=== PATIENT | male | born 1955 | race Caucasian/White ===

== ENCOUNTER 2018-06-12 13:43 | Inpatient (IN) | payer OTHER ==
[~2018-06-12] VITALS: Ht 170.2 cm; Wt 103.9 kg
[2018-06-12] MEDS ORDERED: LOSA25TA12 PO (13:56)
[2018-06-12] MEDS ORDERED: SIMV10TA6 PO (13:56)
[2018-06-12] MEDS ORDERED: OMEP20CA10 PO (13:56)
[2018-06-12 15:12] LABS: BASOPHILS % 0.6 % (0.0-2.0); EOSINOPHILS % 2.1 % (0.0-5.0); HEMATOCRIT. 46.8 % (42.0-52.0); LYMPHOCYTES % 21.4 % (20.0-50.0); MEAN CORPUSCULAR HEMOGLOBIN 28.3 pg (28.0-32.0); MEAN CORPUSCULAR VOLUME 82.4 fL (80.0-94.0); MEAN PLATELET VOLUME 10.9 fl (7.4-10.4); MONOCYTES % 5.3 % (2.0-8.0); NEUTROPHILS % 70.6 % (40.0-76.0); PLATELET 143 x1000/uL (130-400); RED BLOOD CELL COUNT 5.67 mill/uL (4.7-6.1); RED CELL DISTRIBUTION WIDTH 13.6 % (11.6-14.6)
[2018-06-12 15:24] LABS: CHLORIDE 109 mEq/L (98-107)
[2018-06-12] MEDS ORDERED: ASPIRIN 81MG TABLET PO ONE (16:00)
[2018-06-12] MEDS ORDERED: ONDANSETRON HCL 4MG/2ML INJ IV PRN (16:45)
[2018-06-12] MEDS ORDERED: ACETAMINOPHEN 325MG TABLET PO PRN (16:45)
[2018-06-12] MEDS ORDERED: CLONIDINE 0.1MG TABLET PO PRN (16:45)
[2018-06-12] MEDS ORDERED: HYDRALAZINE 20MG/ML VIAL IV PRN (16:45)
[2018-06-12 17:26] LABS: CREATINE KINASE MB FRACTION 1.2 ng/mL (0.5-3.6)
[2018-06-12] MEDS ORDERED: AMLODIPINE 5MG TABLET PO NR (19:15)
[2018-06-12] MEDS ORDERED: LOSARTAN POTASSIUM 100 MG TABLET PO NR (19:15)
[2018-06-12 22:09] VITALS: BP 170/76
[2018-06-12 22:22] VITALS: BP 170/76
[2018-06-13] VITALS (7 sets, daily range): BP systolic 134–150; BP diastolic 62–95
[2018-06-13] MEDS: AMLODIPINE 5MG TABLET PO SCH ×3 (01:12→21:11)
[2018-06-13 08:39] LABS: BASOPHILS % 0.6 % (0.0-2.0); EOSINOPHILS % 3.2 % (0.0-5.0); HEMATOCRIT. 45.9 % (42.0-52.0); HEMOGLOBIN. 15.6 g/dL (14.0-18.0); LYMPHOCYTES % 28.4 % (20.0-50.0); MEAN CORPUSCULAR HEMOGLOBIN 28.1 pg (28.0-32.0); MEAN CORPUSCULAR VOLUME 82.6 fL (80.0-94.0); MEAN PLATELET VOLUME 10.7 fl (7.4-10.4); MONOCYTES % 4.7 % (2.0-8.0); NEUTROPHILS % 63.1 % (40.0-76.0); PLATELET 142 x1000/uL (130-400); RED BLOOD CELL COUNT 5.55 mill/uL (4.7-6.1); RED CELL DISTRIBUTION WIDTH 14.2 % (11.6-14.6)
[2018-06-13] MEDS: METOPROLOL TARTRATE 25MG TABLET PO SCH ×2 (09:00→21:12)
[2018-06-13] MEDS: ASPIRIN 81MG TABLET PO SCH (09:52)
[2018-06-13] MEDS: LOSARTAN POTASSIUM 100 MG TABLET PO SCH (09:53)
[2018-06-13] MEDS: FLUTICASONE PROPIONATE 50MCG/SPRAY BOTTLE BOTHNSTRLS SCH ×2 (11:00→21:11)
[2018-06-13 11:35] LABS: CHLORIDE 107 mEq/L (98-107)
[2018-06-13] MEDS ORDERED: ATORVASTATIN CALCIUM 20MG TABLET PO SCH (21:00)
[2018-06-14] VITALS: BP 134/70
[2018-06-14 04:00] VITALS: BP 146/48
[2018-06-14 06:55] LABS: HEMATOCRIT 47.3 % (42.0-52.0); HEMOGLOBIN 16.4 g/dL (14.0-18.0); MEAN CORPUSCULAR HEMOGLOBIN 28.5 pg (28.0-32.0); MEAN CORPUSCULAR VOLUME 82.2 fL (80.0-94.0); PLATELET 140 x1000/uL (130-400); RED BLOOD CELL COUNT 5.75 mill/uL (4.7-6.1)
[2018-06-14 07:37] LABS: CHLORIDE 109 mEq/L (98-107)
[2018-06-14 08:00] VITALS: BP 143/83
[2018-06-14] MEDS: FLUTICASONE PROPIONATE 50MCG/SPRAY BOTTLE BOTHNSTRLS SCH (08:05)
[2018-06-14] MEDS: ASPIRIN 81MG TABLET PO SCH (08:05)
[2018-06-14] MEDS: LOSARTAN POTASSIUM 100 MG TABLET PO SCH (08:05)
[2018-06-14] MEDS: METOPROLOL TARTRATE 25MG TABLET PO SCH (08:06)
[2018-06-14] MEDS: AMLODIPINE 5MG TABLET PO SCH (08:06)
[2018-06-14 12:00] VITALS: BP_SYST 143; BP_SYST 145; BP_DIAS 73; BP_DIAS 84; BP_DIAS 85
== END 2018-06-14 15:20 | disposition home or self-care (01) | DRG 74 ==
LOC: ER 13:43 → 5WST 16:06 → EDBEDREQ 16:37 → EDBEDREQTM 16:37 → CANRESERV 20:50 → ENRESERV 20:50
PROVIDERS: ADMIT Internal Medicine; ATTEND Internal Medicine
DX: G90.8 Other disorders of autonomic nervous system (principal); M94.0 Chondrocostal junction syndrome [Tietze]; E66.9 Obesity, unspecified; K21.9 Gastro-esophageal reflux disease without esophagitis; I27.20 Pulmonary hypertension, unspecified; E87.8 Other disorders of electrolyte and fluid balance, not elsewhere classified; I36.1 Nonrheumatic tricuspid (valve) insufficiency; I10 Essential (primary) hypertension; E78.2 Mixed hyperlipidemia; I45.10 Unspecified right bundle-branch block; Z79.899 Other long term (current) drug therapy; Z68.35 Body mass index [BMI] 35.0-35.9, adult
CPT/HCPCS: 36415; 70551; 71045; 80048; 80061; 82550; 82553; 83036; 83880; 84443; 84484; 85027; 93005; 93306; 93970; 97161; 99285